=== PATIENT | female | born 1965 | race Two or more races ===

== ENCOUNTER 2020-06-24 13:05 | Outpatient (CLI) | payer OTHER ==
[~2020-06-24 13:05] MED LIST: MERIDIA10 MG PO
== END 2020-06-24 13:10 | disposition home or self-care (01) ==
LOC: PPH VACUNA 13:05
DX: Z23 Encounter for immunization (principal)

== ENCOUNTER → 2021-02-23 14:25 | Outpatient (CLI) | payer OTHER | END | disposition home or self-care (01) | LOC: PPH VACUNA 14:25 | PROVIDERS: ATTEND Emergency Medicine Pediatric Emergency Medicine | DX: Z23 Encounter for immunization (principal) ==